=== PATIENT | male | born 1970 | race American Indian/Alaskan Native ===

== ENCOUNTER 2016-10-01 14:34 | Emergency (ER) | payer SELFPAY ==
[2016-10-01] MEDS ORDERED: REGLAN IV ONE (16:35)
[2016-10-01] MEDS ORDERED: NACL 0.9% 1000 ML 1,000 ML IV ONE (16:35)
[2016-10-01] MEDS ORDERED: BENADRYL IV ONE (16:35)
[2016-10-01] MEDS ORDERED: TORADOL IV ONE (16:35)
[2016-10-01] MEDS ORDERED: DECADRON IV ONE (16:36)
[2016-10-01 17:18] VITALS: BP 106/76
--- NOTE | 2016-10-01 17:37 | Cat Scan Report ---
FINAL REPORT PROCEDURE: CT head without contrast. TECHNIQUE: Computerized tomography of the head was performed without contrast material. HISTORY: Headache. COMPARISON: No prior studies are available for comparison. FINDINGS: The ventricles are normal in size. The lomas matter and white matter appear normal. There are no mass lesions. There is no intracranial hemorrhage. There are no signs of acute infarction. The calvarium appears intact. The mastoid air cells and visualized paranasal sinuses are well aerated. IMPRESSION: Normal study.
--- NOTE | 2016-10-01 18:12 | Emergency Department Report ---
Entered by MATTHIEU SANTANA, acting as scribe for JOSE WILKERSON NP. ED Headache HPI - General Chief Complaint: Headache Stated Complaint: PAIN IN HEAD X 2 DAYS Time Seen by Provider: 10/01/16 16:20 Source: patient Exam Limitations: no limitations - History of Present Illness Initial Comments: 45 y/o male with PMHx of headaches, presents to the ED c/o headache x 2 days. Associated symptoms include fever and chills but he denies blurry vision, ear pain, nausea and vomiting. Patient states he is getting over a cold. Denies head trauma. No alleviating factors despite taking OTC meds and no aggravating factors. NKDA. Timing/Duration: constant Quality: moderate Head Injury Location: occipital (right) Recent Head Trauma: frequent headaches Associated Symptoms: fever/chills. denies: confusion, fatigue, facial pain, nausea/vomiting, numbness in legs/feet, seizures, sinus infection, stiff neck, vision changes, weakness, other (ear pain, head trauma) Allergies/Adverse Reactions: Allergies No Known Allergies Allergy (Unverified 10/01/16 14:57) Home Medications: Ambulatory Orders Metoclopramide [Reglan] 10 mg PO ACHS PRN #28 tablet 10/01/16 diphenhydrAMINE [Benadryl CAP] 25 mg PO Q8HR PRN #30 capsule 10/01/16 traMADol [Ultram] 50 mg PO Q8HR PRN #10 tablet 10/01/16 ED Review of Systems Comment: All other systems reviewed and negative Constitutional: chills, fever Eyes: denies: vision change ENT: denies: ear pain Respiratory: denies: cough, shortness of breath, wheezing Cardiovascular: denies: chest pain, palpitations Endocrine: no symptoms reported Gastrointestinal: denies: nausea, vomiting Genitourinary: denies: urgency, dysuria Musculoskeletal: as per HPI Skin: denies: rash, lesions Neurological: headache. denies: weakness, numbness, paresthesias, confusion, abnormal gait, vertigo, other (head trauma) Psychiatric: denies: anxiety, depression Hematological/Lymphatic: denies: easy bleeding, easy bruising ED Past Medical Hx - Past Medical History Previous Medical History?: No - Surgical History Past Surgical History?: No - Social History Smoking Status: Current Every Day Smoker Substance Use Type: Alcohol - Medications Home Medications: Home Medications Medication Instructions Recorded Confirmed Last Taken Type Metoclopramide [Reglan] 10 mg PO ACHS PRN #28 tablet 10/01/16 Unknown Rx diphenhydrAMINE [Benadryl CAP] 25 mg PO Q8HR PRN #30 capsule 10/01/16 Unknown Rx traMADol [Ultram] 50 mg PO Q8HR PRN #10 tablet 10/01/16 Unknown Rx ED Physical Exam - General Limitations: No Limitations General appearance: alert, in no apparent distress - Head Head exam: Present: atraumatic, normocephalic, normal inspection - Eye Eye exam: Present: normal appearance, PERRL, EOMI. Absent: scleral icterus, conjunctival injection, nystagmus, periorbital swelling, periorbital tenderness , other Pupils: Present: normal accommodation - ENT ENT exam: Present: normal exam, normal orophraynx, mucous membranes moist, TM's normal bilaterally, normal external ear exam - Neck Neck exam: Present: normal inspection, full ROM. Absent: tenderness, meningismus, lymphadenopathy, thyromegaly - Respiratory Respiratory exam: Present: normal lung sounds bilaterally. Absent: respiratory distress, wheezes, rales, rhonchi, stridor, chest wall tenderness, accessory muscle use, decreased breath sounds, prolonged expiratory - Cardiovascular Cardiovascular Exam: Present: regular rate, normal rhythm, normal heart sounds. Absent: bradycardia, tachycardia, irregular rhythm, systolic murmur, diastolic murmur, rubs, gallop - GI/Abdominal GI/Abdominal exam: Present: soft, normal bowel sounds. Absent: distended, tenderness, guarding, rebound, rigid, diminished bowel sounds - Rectal Rectal exam: Present: deferred - Extremities Exam Extremities exam: Present: normal inspection, full ROM, normal capillary refill. Absent: tenderness, pedal edema, joint swelling, calf tenderness - Back Exam Back exam: Present: normal inspection, full ROM. Absent: tenderness, CVA tenderness (R), CVA tenderness (L), muscle spasm, paraspinal tenderness, vertebral tenderness, rash noted - Neurological Exam Neurological exam: Present: alert, oriented X3 - Expanded Neurological Exam Expanded Patient oriented to: Present: person, place, time Speech: Present: fluid speech Cranial nerves: EOM's Intact: Normal, Gag Reflex: Normal, Tongue Deviation: Normal, Nystagmus: Normal, Facial Sensation: Normal Cerebellar function: Finger to Nose: Normal, Heel to Dick: Normal, Romberg: Normal Upper motor neuron: Stevenson Neglect: Normal, Pronator Drift: Normal, Babinski Sign : Normal, Sensory Extinction: Normal Sensory exam: Upper Extremity Light Touch: Normal, Upper Extremity Pin Prick: Normal, Upper Extremity Temperature: Normal, UE 2 Point Discrimination: Normal, Lower Extremity Light Touch: Normal, Lower Extremity Pin Prick: Normal, Lower Extremity Temperature: Normal, LE 2 Point Discrimination: Normal Motor strength exam: RUE: 5, LUE: 5, RLE: 5, LLE: 5 DTR: bicep (R): 2+, bicep (L): 2+, tricep (R): 2+, tricep (L): 2+, knee (R): 2+ , knee (L): 2+, ankle (R): 2+, ankle (L): 2+ Best Eye Response ([place]ina): (4) open spontaneously Best Motor Response ([place]): (6) obeys commands Best Verbal Response ([place]ina): (5) oriented Selina Total: 15 - Psychiatric Psychiatric exam: Present: normal affect, normal mood - Skin Skin exam: Present: warm, dry, intact, normal color ED Course Vital Signs 10/01/16 10/01/16 14:57 17:00 Temperature 98.8 F 98.4 F Pulse Rate 82 64 Respiratory 18 20 Rate Blood Pressure 121/76 Blood Pressure 106/76 [Left] O2 Sat by Pulse 98 93 Oximetry ED Medical Decision Making - Radiology Data Radiology results: report reviewed normal ct scan of head / brain - Medical Decision Making pt is a 45 y/o aam who presents for right occipital headache x 2 weeks intermittently, pain is described as 7/10 aching pain does not radiated there is no blurred vision no nausea or vomiting neck stiffness no swelling, pt does endorse sinus congestion and postnasal drip, exam: TMs clear bilat, nose: mild turbinate erythema clear post nasal drip, sinus: no pain to palpation, pharynx: no erythema no lesions no exudate, no edema uvula midline airway patent, no cervicle lymph, plan: NS, Decadron, ketorolac benadryl, reglan, headache improved to 2/10 will dc with benadryl, reglan, tramadol pt with follow up with primary care upon appointment pt verbalized agreement and understanding of discharge plan. ED Disposition Clinical Impression: Headache Qualifiers: Headache type: cluster Headache chronicity pattern: episodic headache Intractability: intractable Qualified Code(s): G44.011 - Episodic cluster headache, intractable Disposition: DC-01 TO HOME OR SELFCARE Is pt being admited?: No Does the pt Need Aspirin: No Condition: Good Instructions: Cluster Headache (ED) Additional Instructions: follow up with Dr. Gunderson [phone] , [facility] Neurology Prescriptions: diphenhydrAMINE [Benadryl CAP] 25 mg PO Q8HR PRN #30 capsule PRN Reason: Headache Metoclopramide [Reglan] 10 mg PO ACHS PRN #28 tablet PRN Reason: Headache traMADol [Ultram] 50 mg PO Q8HR PRN #10 tablet PRN Reason: Pain Referrals: PRIMARY CARE,MD [Primary Care Provider] - 3-5 Days Forms: Work/School Release Form(ED) Time of Disposition: 18:09 This documentation as recorded by the ESTHER bennett ELIZABETH,accurately reflects the service I personally performed and the decisions made by , JOSE WILKERSON NP.
== END 2016-10-01 18:27 | disposition home or self-care (01) ==
LOC: ED 14:34
DX: R51 Headache (principal); R50.9 Fever, unspecified; F17.210 Nicotine dependence, cigarettes, uncomplicated
CPT/HCPCS: 70450; 96361; 96374; 96375; 99283; J1100; J1200; J1885; J2765; J7030

== ENCOUNTER 2019-05-04 00:32 | Emergency (ER) | payer SELFPAY ==
[2019-05-04 01:13] VITALS: BP 133/92
[2019-05-04 04:13] LABS: Basophils # (Auto) 0.1 K/mm3 (0.0-0.1); Eosinophils # (Auto) 0.3 K/mm3 (0.0-0.4); Eosinophils % (Auto) 4.4 % (0.0-4.3); Hematocrit 44.6 % (35.5-45.6); Hemoglobin 14.3 gm/dl (11.8-15.2); Lymphocytes # (Auto) 1.8 K/mm3 (1.2-5.4); Lymphocytes % (Auto) 27.1 % (13.4-35.0); Mean Corpuscular HGB Conc 32 % (32-34); Mean Corpuscular Volume 76 fl (84-94); Monocytes # (Auto) 0.7 K/mm3 (0.0-0.8); Monocytes % (Auto) 10.2 % (0.0-7.3); Platelet Count 196 K/mm3 (140-440); Red Blood Count 5.88 M/mm3 (3.65-5.03); Red Cell Distribution Width 15.2 % (13.2-15.2)
[2019-05-04 04:33] LABS: BUN/Creatinine Ratio 12; Blood Urea Nitrogen 11 mg/dL (9-20); Calcium 9.4 mg/dL (8.4-10.2); Hemolysis Index 6
[2019-05-04 04:41] LABS: Bilirubin,Urine NEG (Negative); Blood,Urine NEG (Negative); Color,Urine Yellow (Yellow); Mucus,Urine 2+ /HPF; Protein,Urine <15 mg/dL mg/dL (Negative)
--- NOTE | 2019-05-04 05:41 | Emergency Department Report ---
ED General Adult HPI - General Chief complaint: High BP Stated complaint: [place]/HBP/POSS DIABETES/FREQ URINE Source: patient Mode of arrival: Ambulatory Limitations: No Limitations - History of Present Illness Initial comments: Patient is a 48-year-old -Malag[place] male with no past medical history who presents to the ED with complaint of elevated blood pressure for the last 1 week intermittently. Patient denies chest pain, shortness of breath, fever, chills, cough, dizziness, headache, abdominal pain, nausea and vomiting, cough, sore throat, syncope or numbness and tingling or weakness of upper and lower extremities bilaterally. MD Complaint: elevated BP -: Sudden, week(s) (1) Location: chest Radiation: non-radiation Severity scale (0 -10): 0 Quality: dull Consistency: intermittent Improves with: none Worsens with: none Associated Symptoms: denies other symptoms. denies: confusion, chest pain, cough, diaphoresis, fever/chills, headaches, loss of appetite, malaise, nausea/vomiting, seizure, shortness of breath, syncope, weakness Treatments Prior to Arrival: none - Related Data Previous Rx's Medication Instructions Recorded Last Taken Type Metoclopramide [Reglan] 10 mg PO ACHS PRN #28 tablet 10/01/16 Unknown Rx diphenhydrAMINE [Benadryl CAP] 25 mg PO Q8HR PRN #30 capsule 10/01/16 Unknown Rx traMADoL [Ultram] 50 mg PO Q8HR PRN #10 tablet 10/01/16 Unknown Rx Allergies Allergy/AdvReac Type Severity Reaction Status Date / Time No Known Allergies Allergy Unverified 10/01/16 14:57 ED Review of Systems ROS: Stated complaint: [place]/HBP/POSS DIABETES/FREQ URINE Other details as noted in HPI Constitutional: other (Elevated blood pressure). denies: chills, fever Eyes: denies: eye pain, eye discharge, vision change ENT: denies: ear pain, throat pain Respiratory: denies: cough, shortness of breath, wheezing Cardiovascular: denies: chest pain, palpitations Endocrine: no symptoms reported Gastrointestinal: denies: abdominal pain, nausea, diarrhea Genitourinary: denies: urgency, dysuria Musculoskeletal: denies: back pain, joint swelling, arthralgia Skin: denies: rash, lesions Neurological: denies: headache, weakness, paresthesias Psychiatric: denies: anxiety, depression Hematological/Lymphatic: denies: easy bleeding, easy bruising ED Past Medical Hx - Past Medical History Previous Medical History?: No - Surgical History Past Surgical History?: No - Social History Smoking Status: Current Every Day Smoker Substance Use Type: None - Medications Home Medications: Home Medications Medication Instructions Recorded Confirmed Last Taken Type Metoclopramide [Reglan] 10 mg PO ACHS PRN #28 tablet 10/01/16 Unknown Rx diphenhydrAMINE [Benadryl CAP] 25 mg PO Q8HR PRN #30 capsule 10/01/16 Unknown Rx traMADoL [Ultram] 50 mg PO Q8HR PRN #10 tablet 10/01/16 Unknown Rx ED Physical Exam - General Limitations: No Limitations General appearance: alert, in no apparent distress - Head Head exam: Present: atraumatic, normocephalic, normal inspection - Eye Eye exam: Present: normal appearance, PERRL, EOMI Pupils: Present: normal accommodation - ENT ENT exam: Present: normal exam, normal orophraynx, mucous membranes moist, TM's normal bilaterally, normal external ear exam - Neck Neck exam: Present: normal inspection, full ROM - Respiratory Respiratory exam: Present: normal lung sounds bilaterally. Absent: respiratory distress, wheezes, rhonchi, stridor, chest wall tenderness, accessory muscle use, prolonged expiratory - Cardiovascular Cardiovascular Exam: Present: regular rate, normal rhythm, normal heart sounds. Absent: systolic murmur, diastolic murmur, rubs, gallop - GI/Abdominal GI/Abdominal exam: Present: soft, normal bowel sounds. Absent: tenderness, guarding, hyperactive bowel sounds, hypoactive bowel sounds - Extremities Exam Extremities exam: Present: normal inspection, full ROM, normal capillary refill - Back Exam Back exam: Present: normal inspection, full ROM. Absent: muscle spasm - Neurological Exam Neurological exam: Present: alert, oriented X3, CN II-XII intact, normal gait, reflexes normal - Psychiatric Psychiatric exam: Present: normal affect, normal mood, anxious - Skin Skin exam: Present: warm, dry, intact, normal color. Absent: rash ED Course Vital Signs 05/04/19 01:11 Temperature 98.2 F Pulse Rate 70 Respiratory 18 Rate Blood Pressure 133/92 O2 Sat by Pulse 97 Oximetry ED Medical Decision Making - Lab Data Result diagrams: 05/04/19 03:55 05/04/19 03:55 - Medical Decision Making This is a 48-year-old male who presented to the ED for evaluation after he complained of persistent elevated blood pressure with no other symptoms. In the ED, patient is alert and oriented x3 and is not in distress with normal vital signs. Lab test results were reviewed and are unremarkable. Patient was disc harged home and advised to follow-up with his primary care physician as needed. Patient was was advised to return to the ED immediately if symptoms get worse. - Differential Diagnosis Well adult exam; anxiety Critical care attestation.: If time is entered above; I have spent that time in minutes in the direct care of this critically ill patient, excluding procedure time. ED Disposition Clinical Impression: Anxiety as acute reaction to exceptional stress, Encounter for well adult exam without abnormal findings Disposition: DC-01 TO HOME OR SELFCARE Is pt being admited?: No Does the pt Need Aspirin: No Condition: Stable Instructions: Anxiety (ED) Additional Instructions: Follow-up with your primary care physician in 7 to 10 days for reevaluation or as needed. All lab test results are unremarkable and your vital signs are stable and normal. Referrals: [facility] [Outside] - as needed Time of Disposition: 05:40 Print Language: ALGERIAN
== END 2019-05-04 06:00 | disposition home or self-care (01) ==
LOC: ED 00:32
DX: F41.9 Anxiety disorder, unspecified (principal); F17.200 Nicotine dependence, unspecified, uncomplicated; Z79.899 Other long term (current) drug therapy; Z00.00 Encounter for general adult medical examination without abnormal findings
CPT/HCPCS: 36415; 80048; 81001; 82962; 85025; 99283